=== PATIENT | male | born 1970 | race Caucasian/White ===

== ENCOUNTER 2019-08-07 10:38 | Emergency (ER) | payer SELFPAY ==
--- NOTE | 2019-08-07 11:21 | ER Document Report ---
ED General - General Chief Complaint: Shortness Of Breath Stated Complaint: COUGH Time Seen by Provider: 08/07/19 10:53 Notes: 48-year-old male presents with cough for a month. Occasionally productive. No shortness of breath until about 2 days ago. No fevers. Lives in [place] has been to the ER there twice at [facility], [place] diagnosed with pneumonia and took 2 course of antibiotics but did not improve. Does not have COPD and smokes he avily but "has been cutting down" lately. No leg swelling no current chest pain. He says that they tried to swab him for coronavirus but because he had a broken nose they were unable to get the swab deep enough so he is not actually been tested. Despite that he is not wearing a mask and is here helping his daughter without self quarantining or social distancing. - Related Data Allergies/Adverse Reactions: No Known Allergies Allergy (Verified 08/07/19 11:02) Past Medical History - General Information source: Patient - Social History Smoking Status: Current Every Day Smoker Smoking Education Provided: Yes - The patient ED visit today was directly related to their abuse of tobacco. Frequency of alcohol use: None Drug Abuse: None Family History: None Patient has homicidal ideation: No Review of Systems - Review of Systems Notes: REVIEW OF SYSTEMS GEN: Denies fever, chills, weight loss ENT: Denies sore throat, nasal discharge, ear pain EYES: Denies blurry vision, eye pain, discharge CV: Denies chest pain, palpitations, edema RESP cough shortness of breath GI: Denies abdominal pain, nausea, vomiting, diarrhea MSK: Denies joint pain/swelling, edema, SKIN: Denies rash, skin lesions LYMPH: Denies swollen glands/lymph nodes NEURO: Denies headache, focal weakness or numbness, dizziness PSYCH: Denies depression, suicidal or homicidal ideation PHYSICAL EXAMINATION General: No acute distress, well-nourished Head: Atraumatic, normocephalic ENT: Mouth normal, oropharynx moist, no exudates or tonsillar enlargement Eyes: Conjunctiva normal, pupils equal, lids normal Neck: No JVD, supple, no guarding CVS: Normal rate, regular rhythm, no murmurs Resp: No resp distress, equal and normal breath sounds bilaterally GI: Nondistended, soft, no tenderness to palpation, no rebound or guarding Ext: No deformities, no edema, normal range of motion in upper and lower ext Back: No CVA or midline TTP Skin: No rash, warm Lymphatic: No lymphadeopathy noted Neuro: Awake, alert. Face symmetric. GCS 15. Physical Exam - Vital signs Vitals: Temp 97.7 F 08/07/19 10:54 Course - Re-evaluation Re-evalutation: 08/07/19 11:19 Subacute cough shortness of breath likely viral bronchitis versus early COPD in a patient with heavy smoking history. Lack of improvement with antibiotics, lack of fever and focal lung findings argues against bacterial pneumonia or the need for further work-up for this. Feels short of breath, but currently has no signs of shortness of breath and is normoxic. Is refusing another COVID test so we discussed that he should assume he has it and behave appropriately. I will prescribe him steroids and an inhaler. Will x-ray to rule out collapsed lung/pneumothorax. 08/07/19 13:16 Chest x-ray clear. Discharge as above I have discussed with the patient there likely diagnosis, aftercare plan, follow-up plans and my usual and customary return precautions. They verbalized understanding of this. - Vital Signs Vital signs: Temp Pulse Resp BP Pulse Ox 98.7 F 100 18 130/87 H 96 08/07/19 11:45 08/07/19 11:45 08/07/19 11:45 08/07/19 11:45 08/07/19 11:45 - Diagnostic Test Radiology reviewed: Image reviewed, Reports reviewed Discharge - Discharge Clinical Impression: Acute bronchitis Qualifiers: Bronchitis organism: unspecified organism Qualified Code(s): J20.9 - Acute bronchitis, unspecified Condition: Good Disposition: HOME, SELF-CARE Instructions: Bronchitis ([facility]), Chronic Obstructive Lung Disease ([facility]) Additional Instructions: You have been evaluated for complaints or symptoms which could reflect infection with coronavirus/Covid-19 disease. You have refused the test, but are high probability and given the prevalence of the disease in this community you should assume you are infected. Please stay at home with minimal interaction to others, wash your hands, practice social distancing while at home, and remained at home without any travel outside of the home for: 1. At least 3 days (72 hours) have passed since recovery defined as resolution of fever without the use of fever-reducing medications and improvement in respiratory symptoms (e.g., cough, shortness of breath) AND 2. At least 7 days have passed since symptoms first appeared. Prescriptions: Albuterol Sulfate [Ventolin Hfa 8 gm Mdi] 2 puff IH Q4HP PRN #1 inhaler PRN Reason: Prednisone [Deltasone 20 mg Tablet] 20 mg PO DAILY #30 tablet
[2019-08-07 11:46] VITALS: BP 130/87
--- NOTE | 2019-08-07 11:54 | RADIOLOGY REPORT (SQ) ---
EXAM DESCRIPTION: CHEST SINGLE VIEW IMAGES COMPLETED DATE/TIME: 08/07/2019 11:42 am REASON FOR STUDY: Cough COMPARISON: None. EXAM PARAMETERS: NUMBER OF VIEWS: One view. TECHNIQUE: An AP view of the chest was obtained. RADIATION DOSE: NA LIMITATIONS: None. FINDINGS: LUNGS AND PLEURA: No consolidation, pleural effusion or pneumothorax. MEDIASTINUM AND HILAR STRUCTURES: No mediastinal or hilar contour abnormality. HEART AND VASCULAR STRUCTURES: The cardiac silhouette and pulmonary vasculature are within normal [place] its. BONES: No acute findings. HARDWARE: None in the chest. OTHER: No other finding. IMPRESSION: No acute cardiopulmonary process. TECHNICAL DOCUMENTATION: JOB ID: [id number] 2010 [employer]- All Rights Reserved Reading location - IP/workstation name: [email or web address]
== END 2019-08-07 11:46 | disposition home or self-care (01) ==
LOC: ER 10:38
DX: R06.02 Shortness of breath (principal); R05 Cough; F17.200 Nicotine dependence, unspecified, uncomplicated; J20.9 Acute bronchitis, unspecified
CPT/HCPCS: 71045; 99283